=== PATIENT | male | born 1985 | race Caucasian/White ===

== ENCOUNTER 2017-06-24 08:43 | Observation (INO) | payer OTHER ==
[~2017-06-24] VITALS: Ht 172.7 cm; Wt 109.5 kg
[~2017-06-24 08:43] MED LIST: 0.9% SODIUM CHLORIDE 10 ML VIAL IVP ONE; CeFAZolin 2 GM/DEXTROSE 50 ML IV ONE; DEXAMETHASONE SOD PHOS 4 MG/ML VIAL IVP ONE; FentaNYL CITRATE-PF 100 MCG/2 ML VIAL IVP ONE; KETOROLAC TROMETHAMINE 60 MG/2 ML VIAL IM ONE; LIDOCAINE HCL/PF 2% 5 ML VIAL IM ONE; MIDAZOLAM HCL 2 MG/2 ML VIAL IVP ONE; ONDANSETRON HCL 4 MG/2 ML VIAL IVP ONE; PROPOFOL 1% 20 ML VIAL IVP ONE; RINGERS SOLUTION,LACTATED 1,000 ML IV ONE; SUCCINYLCHOLINE CHLORIDE 20 MG/ML 10 ML VIAL IVP ONE
[2017-06-24] MEDS ORDERED: BUPIVACAINE HCL/PF 0.5% 30 ML VIAL ONE (09:07)
[2017-06-24] MEDS ORDERED: RINGERS SOLUTION,LACTATED 1,000 ML IV ONE (09:07)
[2017-06-24] MEDS ORDERED: VANCOMYCIN HCL 1 GM/VIAL ONE (09:07)
[2017-06-24 09:21] LABS: BASOPHILS % (AUTO) 0.7 % (0.0-2.0); EOSINOPHILS % (AUTO) 0.7 % (1.0-6.0); HEMATOCRIT 49.4 % (41-53); HEMOGLOBIN 16.6 g/dL (13.5-17.5); LYMPHOCYTES # (AUTO) 2.3 K/uL (1.0-4.8); LYMPHOCYTES % (AUTO) 38.5 % (22.0-44.0); MEAN CORPUSCULAR HEMOGLOBIN 31.1 pg (26.0-34.0); MEAN CORPUSCULAR HGB CONC 33.6 G/dL (31.0-37.0); MEAN CORPUSCULAR VOLUME 92 fL (80-100); MONOCYTES # (AUTO) 0.6 K/uL (0.1-1.0); MONOCYTES % (AUTO) 10.7 % (2.0-9.0); NEUTROPHILS # (AUTO) 2.9 K/uL (1.8-7.7); NEUTROPHILS % (AUTO) 49.4 % (40.0-70.0); PLATELET COUNT (AUTO) 334 K/uL (150-450); RED BLOOD CELL COUNT(AUTO) 5.35 MIL/uL (4.50-5.90); RED CELL DISTRIBUTION WIDTH 13.4 % (11.5-14.5); WHITE BLOOD COUNT (AUTO) 5.9 K/uL (4.5-11.0)
[2017-06-24 09:31] LABS: CREATININE 1.51 mg/dL (0.60-1.30)
[2017-06-24 09:36] LABS: ALBUMIN 4.3 g/dL (3.4-5.0); BILIRUBIN,TOTAL 0.8 mg/dL (0.1-1.0); TOTAL PROTEIN, SERUM 8.7 g/dL (6.4-8.2)
[2017-06-24 09:42] LABS: INR 1.1 (0.9-1.1); PROTHROMBIN TIME 11.4 SEC (9.4-11.6)
[2017-06-24] MEDS ORDERED: BENZOCAINE/MENTHOL LOZENGE [8 LOZENGES/PACKET] PO PRN (09:45)
[2017-06-24] MEDS ORDERED: ZOLPIDEM TARTRATE 10 MG TABLET PO PRN (09:45)
[2017-06-24] MEDS ORDERED: ONDANSETRON HCL 4 MG/2 ML VIAL IVP PRN ×2 (09:45→10:15)
[2017-06-24] MEDS ORDERED: ZOLPIDEM TARTRATE 5 MG TABLET PO PRN (10:15)
[2017-06-24] MEDS ORDERED: MEPERIDINE-PF 25 MG/ML SYRINGE IVP PRN (10:15)
[2017-06-24] MEDS ORDERED: HYDROmorphone 2 MG/ML SYRINGE IVP PRN ×2 (10:15)
[2017-06-24] MEDS ORDERED: CYCLOBENZAPRINE HCL 10 MG TABLET PO PRN (10:15)
[2017-06-24] MEDS ORDERED: FentaNYL CITRATE-PF 100 MCG/2 ML VIAL IVP PRN (10:15)
[2017-06-24] MEDS ORDERED: BUPIVACAINE LIPOSOME/PF 1.3%-13.3MG/ML SUSPENSION 20 ML VIAL INJ ONE (10:15)
[2017-06-24] MEDS ORDERED: OxyCODONE HCL/ACETAMINOPHEN 10-325 MG TABLET PO PRN (10:15)
[2017-06-24] MEDS ORDERED: PROMETHAZINE HCL 25 MG/ML VIAL IM PRN (10:15)
[2017-06-24 12:33] VITALS: BP 143/75
[2017-06-24] MEDS ORDERED: ACETAMINOPHEN 1000 MG/ISO-OSM 100 ML IV ONE (15:00)
[2017-06-24 16:33] VITALS: BP 135/73
[2017-06-24] MEDS: CeFAZolin 1 GM/DEXTROSE 50 ML IV SCH (17:08)
[2017-06-24 20:00] VITALS: BP 122/56
[2017-06-24] MEDS ORDERED: OXYGEN THERAPY IH SCH (20:00)
[2017-06-24] MEDS: DOCUSATE SODIUM 100 MG CAPSULE PO SCH (21:20)
[2017-06-24 23:43] VITALS: BP 109/64
[2017-06-25] MEDS: CeFAZolin 1 GM/DEXTROSE 50 ML IV SCH (03:20)
[2017-06-25 03:27] VITALS: BP 129/65
[2017-06-25 08:00] VITALS: BP 117/65
[2017-06-25] MEDS: DOCUSATE SODIUM 100 MG CAPSULE PO SCH (09:10)
[2017-06-25 10:25] VITALS: BP 117/65
[2017-06-25 12:00] VITALS: BP 127/56
== END 2017-06-25 13:25 | disposition home or self-care (01) ==
LOC: 4E 08:43
PROVIDERS: ADMIT Internal Medicine; ATTEND Orthopaedic Surgery Orthopaedic Surgery of the Spine
DX: M51.26 Other intervertebral disc displacement, lumbar region (principal); M51.27 Other intervertebral disc displacement, lumbosacral region; I10 Essential (primary) hypertension
CPT/HCPCS: 36415; 63047; 63048; 80053; 85025; 85610; 85730; 87081; 96365; 96375 ×2; 97116; 97161; 97166; 97535; C9290; G0238; G0378 ×2; J0131; J0330; J0690 ×3; J1100; J1170; J1885; J2250; J2405; J2704; J3010; J3370; J3490 ×2; J7120